=== PATIENT | female | born 1985 | race African-American/Black ===

== ENCOUNTER 2018-12-09 01:47 | Emergency (ER) | payer SELFPAY ==
[2018-12-09] MEDS ORDERED: Famotidine IV* 10 MG/ML 2 ML (20 mg) IV SLOW PU ONE (01:50)
[2018-12-09] MEDS ORDERED: NS 0.9% 1000 ML** 1,000 ML IV ONE (01:50)
[2018-12-09] MEDS ORDERED: Ondansetron INJ* 2 MG/ML VIAL IV ONE (01:50)
--- NOTE | 2018-12-09 01:57 | ED ---
Substance Abuse/Use - HPI Summary HPI Summary: LEVEL 5 CAVEAT: HPI UNOBTAINABLE DUE TO ALCOHOL INTOXICATION. Patient is a 33 year old female presenting to [facility] brought in by EMS for a chief complaint of alcohol intoxication. Patient had been drinking at the [employer] for [facility]. She had vomited several times. There is no history for trauma however there is no abrasion above her right eye noticed by EMS. - History Of Current Complaint Stated Complaint: ETOH PER EMS Time Seen by Provider: 12/09/18 01:48 Hx Obtained From: EMS PMH/Surg Hx/FS Hx/Imm Hx - Additional Comments History Additional Comments: LEVEL 5 CAVEAT: PMH UNOBTAINABLE DUE TO ALCOHOL INTOXICATION Review of Systems All Other Systems Reviewed And Are Negative: No - Comments Additional Review of Systems Comments: LEVEL 5 CAVEAT ROS UNOBTAINABLE DUE TO ETOH INTOXICATION Physical Exam - Summary Physical Exam Summary: Appearance: well appearing, no pain distress Skin: warm, dry, reflects adequate perfusion Head/face: normal. Tiny laceration over the medial right eyebrow, no bleeding. No other sign of injury. Eyes: EOMI, PERRL. Gaze is disconjugate. ENT: mucous membranes moist Neck: supple, non-tender Respiratory: CTA, breath sounds present Cardiovascular: RRR, pulses symmetrical Abdomen: non-tender, soft Bowel Sounds: present Musculoskeletal: normal, strength/ROM intact Neuro: normal, sensory motor intact, A&Ox3 GCS: Triage Information Reviewed: Yes Vital Signs On Initial Exam: Temp Pulse Resp BP Pulse Ox 97.6 F 91 14 104/58 97 12/09/18 01:54 12/09/18 01:54 12/09/18 01:54 12/09/18 01:54 12/09/18 01:54 Vital Signs Reviewed: Yes Completion Of Physical Exam Limited Due To: Level 5 Diagnostics - Laboratory Result Diagrams: 12/09/18 02:04 12/09/18 02:04 Lab Statement: Any lab studies that have been ordered have been reviewed, and results considered in the medical decision making process. - CT Brain CT Interpretation Completed By: Radiologist Summary of CT Findings: No acute intracranial pathology. ED Provider has reviewed this report. Course/Dx - Course Course Of Treatment: Nurses' note reviewed. Head CT negative. Patient observed for several hours until she sobered. She now has functional capacity including clear speech, steady gait and the ability to reason normally. She has been up and moving about the ER. A safe ride will be arranged and she was discharged in good condition. - Diagnoses Differential Diagnosis/HQI/PQRI: Positive: Other - Intoxication, head injury, intracranial bleed Provider Diagnoses: Alcohol intoxication, Fall, Forehead abrasion Discharge - Sign-Out/Discharge Documenting (check all that apply): Patient Departure - Discharge Patient Received Moderate/Deep Sedation with Procedure: No - Discharge Plan Condition: Improved Disposition: HOME Patient Education Materials: Alcohol Intoxication (ED) Referrals: [facility] [Outside] Additional Instructions: Never drink to excess. Do not drive today. Stay well-hydrated. Return if worse, new symptoms or other concerns. Dress wound on year for head with bacitracin ointment 2-3 times daily. - Billing Disposition and Condition Condition: IMPROVED Disposition: Home - Attestation Statements Document Initiated by [employer]: Yes Documenting Scribe: Cosme Wu Provider For Whom Scribe is Documenting (Include Credential): Cj Mccrary MD Scribe Attestation: Cosme Yousif scribed for Cj Mccrary MD on 12/09/18 at 0640. Scribe Documentation Reviewed: Yes Provider Attestation: The documentation as recorded by the Cosme arias accurately reflects the service I personally performed and the decisions made by Cj wright MD Status of Scribe Document: Viewed
[2018-12-09 02:24] LABS: ABS Basophils 0.1 10^3/ul (0-0.2); ABS Lymphocytes 2.3 10^3/ul (1.0-4.8); ABS Monocytes 0.6 10^3/ul (0-0.8); ABS Neutrophils 4.9 10^3/ul (1.5-7.7); Eosinophil % 0.6 %; Hematocrit 37 % (35-47); Hemoglobin 11.4 g/dL (12.0-16.0); Lymphocyte % 28.8 %; Mean Corpuscular HGB Conc 31 g/dL (31-36); Mean Corpuscular Hemoglobin 22 pg (27-31); Mean Corpuscular Volume 69 fL (80-97); Mean Platelet Volume 8.2 fL (7.4-10.4); Nucleated Red Blood Cells % 0.1; Platelet Count 370 10^3/uL (150-450); Red Blood Count 5.26 10^6 /uL (3.70-4.87); Red Cell Distribution Width 16 % (10-15)
[2018-12-09 02:28] LABS: Anion Gap 14 mmol/L (2-11); BUN/Creatinine Ratio 18.6 (8-20); Blood Urea Nitrogen 18 mg/dL (6-24); CO2 Carbon Dioxide 20 mmol/L (22-32); Calcium 9.1 mg/dL (8.6-10.3); Chloride 106 mmol/L (101-111); Glucose 97 mg/dL (70-100); Potassium 3.6 mmol/L (3.5-5.0); Sodium 140 mmol/L (135-145)
[2018-12-09 02:33] LABS: Alcohol 222 mg/dL (<10)
[2018-12-09 02:36] LABS: HCG Pregnancy < 0.60 mIU/mL
[2018-12-09 06:32] VITALS: BP 90/57
== END 2018-12-09 06:25 | disposition home or self-care (01) ==
LOC: EDUNIT# → EDBD → ED 01:47
DX: F10.129 Alcohol abuse with intoxication, unspecified (principal); S00.81XA Abrasion of other part of head, initial encounter; X58.XXXA Exposure to other specified factors, initial encounter; Y92.9 Unspecified place or not applicable
CPT/HCPCS: 36415; 70450; 80048; 80320; 84702; 85025; 85060; 96374; 96375; 99283; G0480; J2405